=== PATIENT | male | born 1960 | race Caucasian/White ===

== ENCOUNTER → 2016-05-22 | Outpatient (CLI) | payer OTHER ==
--- NOTE | 2016-05-23 01:36 | REP ---
Clinical: Pain with history of old injury. Technique: AP, lateral, bilateral oblique views right foot . Findings: The osseous structures and joint spaces are intact and normal. There is no evidence for acute fracture or dislocation. Surrounding soft tissues are unremarkable. No subcutaneous emphysema or radiodense foreign body. Impression: Normal examination. No acute fracture or dislocation. Signed by Nahun Ken MD 05/23/2016 01:28 A
== END | disposition home or self-care (01) ==
LOC: M WUC 16:22
PROVIDERS: ATTEND Physician Assistant
DX: M79.671 Pain in right foot (principal)

== ENCOUNTER → 2023-10-05 | Day surgery (SDC) | payer OTHER ==
[~2023-10-05] VITALS: Ht 162.6 cm; Wt 44.5 kg
[~2023-10-05] MED LIST: ATOR40TA75 PO; ATROPINE SULFATE 1% OPHTH SOLN 2ML BTL OD SCH; CEFUROXIME 1MG/0.1ML INTRACAMERAL INJ As Ordered ONE; FLURBIPROFEN 0.03% OPHTH SOLN 2.5 ML OD SCH; LIDOCAINE 1% SDV 5ML VIAL As Ordered ONE; LOSA100T8 PO; LR 1,000 ML IV SCH; PHENYLEPHRINE 2.5% OPHTH SOL 2ML OD SCH; TETRACAINE 0.5% OPHTH SOLN 4ML OD SCH; VITA200016 PO
== END | disposition home or self-care (01) ==
LOC: M SDC 09:47
PROVIDERS: ATTEND Ophthalmology
DX: H25.11 Age-related nuclear cataract, right eye (principal); Z53.9 Procedure and treatment not carried out, unspecified reason